=== PATIENT | male | born 1990 | race Caucasian/White ===

== ENCOUNTER 2021-04-23 20:59 | Emergency (ER) | payer OTHER ==
[~2021-04-23] VITALS: Ht 180.3 cm; Wt 89.5 kg
[2021-04-23 22:58] VITALS: BP 111/84
[2021-04-23] MEDS ORDERED: ibuprofen tablet 400 MG TABLET PO ONE (23:05)
[2021-04-23] MEDS ORDERED: dexamethasone 4mg tablet PO ONE (23:45)
[2021-04-23] MEDS ORDERED: DEXA4TAB67 PO (23:53)
[2021-04-23] MEDS ORDERED: AMOX-101 PO (23:53)
== END 2021-04-24 00:32 | disposition home or self-care (01) ==
LOC: ER 21:00
DX: U07.1 COVID-19 (principal); H66.92 Otitis media, unspecified, left ear; R53.83 Other fatigue; R19.7 Diarrhea, unspecified; R05 Cough; R51.9 Headache, unspecified; H92.02 Otalgia, left ear
CPT/HCPCS: 87635; 99283; C9803